=== PATIENT | male | born 1990 ===

== ENCOUNTER 2018-01-21 15:50 | Emergency (ER) | payer OTHER ==
[2018-01-21 16:24] VITALS: BP 143/77
--- NOTE | 2018-01-21 16:28 | UC ---
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 today, his dog wrapped around his R leg with the leash and took off causing pt to hyper-extend his L knee. he heard it crack. pt notes if he pivots just right it feels a little sore. denies swelling. - History of Current Complaint Stated Complaint: LEFT KNEE INJURY Time Seen by Provider: 01/21/18 16:17 Hx Obtained From: Patient Onset/Duration: Sudden Onset Able to Bear Weight: Yes Related History: Occupational Injury - Allergies/Home Medications Allergies/Adverse Reactions: Allergies Allergy/AdvReac Type Severity Reaction Status Date / Time acetaminophen Allergy Rash Verified 01/21/18 16:23 Home Medications: Home Medications NK [No Home Medications Reported] 01/21/18 [History Confirmed 01/21/18] PMH/Surg Hx/FS Hx/Imm Hx Previously Healthy: Yes - Surgical History Surgical History: None - Family History Known Family History: Positive: Cardiac Disease - Social History Occupation: Employed Full-time Lives: With Family Alcohol Use: Occasionally Smoking Status (MU): Never Smoked Tobacco - Immunization History Vaccination Up to Date: Yes Review of Systems Constitutional: Negative Skin: Negative Eyes: Negative ENT: Negative Respiratory: Negative Cardiovascular: Negative Gastrointestinal: Negative Genitourinary: Negative Motor: Negative Neurovascular: Negative Musculoskeletal: Other: - L knee pain Neurological: Negative Psychological: Negative Is Patient Immunocompromised?: No All Other Systems Reviewed And Are Negative: Yes Physical Exam Triage Information Reviewed: Yes Appearance: Well-Appearing Vital Signs Reviewed: Yes Eyes: Positive: Conjunctiva Clear ENT: Positive: Normal ENT inspection Neck: Positive: Supple, Nontender, No Lymphadenopathy Respiratory: Positive: Lungs clear, Normal breath sounds Cardiovascular: Positive: RRR, No Murmur Abdomen Description: Positive: Nontender, No Organomegaly, Soft Bowel Sounds: Positive: Present Musculoskeletal: Positive: Other: - LLE: no gross deformity, swelling or discoloration. non tender to palpation. no laxity to L knee on valgus, varus, anterior and posterior stressing. active rom is intact along with s/v. pivoting causes some mild "soreness" in knee. Diagnostics - Laboratory Diagnostic Studies Completed/Ordered: wet read knee xray=nad Lower Extremity Course/Dx - Course Course Of Treatment: no fx, dislocation or joint laxity. will luzmaria for comfort and prn ortho f/u. no hx htn, visit related bp but f/u encouraged. pt declined work restrictions. - Differential Dx/Diagnosis Provider Diagnoses: Strain R knee Discharge - Sign-Out/Discharge Documenting (check all that apply): Discharge/Admit/Transfer - Discharge Plan Condition: Stable Disposition: HOME Patient Education Materials: Knee Pain (ED) Referrals: Yadiel Owens MD [Medical Doctor] - Additional Instructions: FOLLOW UP [facility] IN 5-7 DAYS IF NOT BETTER OR SOONER IF WORSE LUZMARIA FOR COMFORT - Billing Disposition and Condition Condition: STABLE Disposition: HOME
--- NOTE | 2018-01-21 17:57 | RAD ---
INDICATION: Left knee pain after hyperextension COMPARISON: None TECHNIQUE: 4 view radiograph of the left knee. FINDINGS: The visualized bones are well-corticated and properly aligned. The joint spaces are properly maintained. There is no radiographic evidence of joint effusion. There is no acute fracture, dislocation or other focal bony abnormality. IMPRESSION: Normal knee radiograph as described above. If the patient's symptoms persist, follow-up imaging is recommended.
== END 2018-01-21 17:37 | disposition home or self-care (01) ==
LOC: UCCORT 15:50
DX: S86.811A Strain of other muscle(s) and tendon(s) at lower leg level, right leg, initial encounter (principal); X50.0XXA Overexertion from strenuous movement or load, initial encounter; Y92.9 Unspecified place or not applicable
CPT/HCPCS: 99212; G0463